=== PATIENT | male | born 1975 | race Caucasian/White ===

== ENCOUNTER 2018-03-31 19:50 | Inpatient (IN) | payer BC, OTHER ==
[~2018-03-31] VITALS: Ht 177.8 cm; Wt 61.2 kg
--- NOTE | 2018-03-31 21:50 | NUR ---
Pre-Admission Note Assessment done in the intake office. Px appears intoxicated at the moment. Px has flushed face and his breath smells alcohol. He looks anxious and depressed. He has flat affect with poor eye contact. Px is A&Ox4. Speech is clear but audibly soft. VS are as follows BP= 140/86, DC= 93, RR= 17, T= 96.6, O2sat= 96% on RA. Px is here for medically supervised withdrawal from ETOH. Px denies any hx of withdrawal-induced seizures. He has NKA. Px brought home medications for reconciliation. Admission process will continue in the unit.
[2018-03-31] MEDS ORDERED: MIRALAX 17 GM POWD.PACK PO PRN (22:15)
[2018-03-31] MEDS ORDERED: DICYCLOMINE HCL 20 MG TABLET PO PRN (22:15)
[2018-03-31] MEDS ORDERED: CLONIDINE HCL 0.1 MG TABLET PO PRN (22:15)
[2018-03-31] MEDS ORDERED: LORAZEPAM 2 MG/1 ML VIAL IM PRN (22:15)
[2018-03-31] MEDS ORDERED: HYDROXYZINE PAMOATE 25 MG CAPSULE PO PRN (22:15)
[2018-03-31] MEDS ORDERED: ONDANSETRON 4 MG/2 ML VIAL IM PRN (22:15)
[2018-03-31] MEDS ORDERED: LORAZEPAM 1 MG TABLET PO PRN (22:15)
[2018-03-31] MEDS ORDERED: LOPERAMIDE HCL 2 MG CAPSULE PO PRN ×2 (22:15)
[2018-03-31] MEDS ORDERED: ONDANSETRON ODT 4 MG TAB.RAPDIS SL PRN (22:15)
[2018-03-31] MEDS ORDERED: IBUPROFEN 600 MG TABLET PO PRN (22:15)
[2018-03-31] MEDS ORDERED: ACETAMINOPHEN 325 MG TABLET PO PRN (22:15)
[2018-03-31] MEDS ORDERED: MAGNESIUM HYDROXIDE 30 ML LIQUID UDC PO PRN (22:15)
[2018-03-31] MEDS ORDERED: diphenhydrAMINE 50 MG CAPSULE PO PRN (22:15)
[2018-03-31] MEDS ORDERED: THIAMINE HCL 200 MG/2 ML VIAL IM ONE (22:15)
[2018-03-31] MEDS ORDERED: MAG HYDROX/AL HYDROX/SIMETH 30 ML LIQUID UDC PO PRN (22:15)
[2018-03-31] MEDS ORDERED: RISP1TAB27 PO (22:17)
[2018-03-31] MEDS ORDERED: MIRT15TA7 PO (22:17)
[2018-03-31] MEDS ORDERED: GABA300S PO (22:17)
[2018-03-31] MEDS ORDERED: TRAZ-214 PO (22:17)
[2018-03-31 22:26] LABS: BASOPHILS # (AUTO) 0.1 K/uL (0.0-8.0); BASOPHILS % (AUTO) 0.9 % (0.0-2.0); EOSINOPHILS % (AUTO) 0.2 % (0.0-7.0); HEMATOCRIT 42.7 % (36.7-47.1); HEMOGLOBIN 14.8 g/dL (12.5-16.3); LYMPHOCYTES # (AUTO) 1.7 K/uL (20.0-40.0); LYMPHOCYTES % (AUTO) 26.7 % (20.5-51.5); MEAN CORPUSCULAR HGB CONC 35 g/dL (32.5-36.3); MEAN CORPUSCULAR VOLUME 95.1 fL (73.0-96.2); MONOCYTES # (AUTO) 0.4 K/uL (2.0-10.0); MONOCYTES % (AUTO) 6.5 % (0.0-11.0); NEUTROPHILS # (AUTO) 4.2 K/uL (1.8-8.9); NEUTROPHILS % (AUTO) 65.7 % (38.5-71.5); PLATELET COUNT (AUTO) 364 K/uL (152-348); RED BLOOD CELL COUNT(AUTO) 4.49 MIL/uL (4.06-5.63); WHITE BLOOD COUNT (AUTO) 6.3 K/uL (3.6-10.2)
--- NOTE | 2018-03-31 22:45 | NUR ---
Admission Note Jamie is a 42 y/o male being admitted for medically supervised withdrawal from ETOH. Upon assessment, px appears intoxicated with ETOH. He has flushed face with breath smells like alcohol. He looks anxious and depressed. He has a flat affect with poor eye contact. Speech is clear and audibly soft. Jamie is A&Ox4 and cooperative. Px states that his withdrawals from ETOH include anxiety, depression, jitteriness, N/V, H/A and hand tremors. Px denies any hx of withdrawal- induced seizure. Jamie is drinking ETOH-Vodka 750 ml daily for 1 year. He started drinking 15 years ago and slowly increased his dosage and frequency. Px admitted that his peers influenced him into drinking. Last time he took ETOH was this afternoon around 2PM. He consumed 750 ml Vodka today. At first, jamie denies any difficulties in life that prompts him to drink alcohol. Jamie states that he goes shopping in supermarkets to divert himself from drinking if he has cravings. Jamie tried many times to get sober in the span of 15 years of drinking where his longest sobriety was 1 whole year from 2016 to 2017. He had also blackouts but denies experiencing falls. He states that challenges in life are the triggers for his relapsed. Jamie is guarded and refrain from elaborating about his challenges in life. Jamie states that he came here because he doesnt feel well, his anxiety is too high, he doesnt want to experience seizures and he doesnt want to early. Jamie lives with his domestic partner who supports him and was the one who assisted him in getting this tx. Jamie plans to finish this detox then go to an [facility] for 60 days because he has to work. 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 Jamie is first time in detox/tx. Jamie has PMH of anxiety and depression. Jamie has home medication of Risperidone but denies schizophrenia or bipolar d/o. VS are as follows BP= 142/85, NH= 95, RR= 19, O2sat= 97% on RA, T= 98.1. Pulse is regular. Respirations are even and unlabored. Lung martinez are clear. Bowel sounds are active on all quadrants. He stands at 510 and weighs 135 lbs on standing scale. Jamie has dried healing 1 inch cut on his right index finger. He stated that he cant recall what happened to it. Px smokes a pack of cigarettes daily. Px is educated about the plan of care including detox, group and individual therapy and D/C planning. Px was encouraged to be open and be honest for a successful recovery.
--- NOTE | 2018-03-31 22:45 | NUR ---
CIWA 12 Px appears anxious and depressed. Px stated that his anxiety is off the roof. Mild bilateral hand tremors noted. No more complaints at the moment. will continue to monitor
[2018-03-31 22:49] LABS: POTASSIUM 3.9 mmol/L (3.5-5.1)
[2018-03-31 22:50] LABS: BILIRUBIN,TOTAL 0.8 mg/dL (0.2-1.0); MAGNESIUM 1.8 mg/dL (1.8-2.4); TOTAL PROTEIN, SERUM 7.7 g/dL (6.4-8.2)
[2018-03-31 22:52] LABS: THYROID STIMULATING HORMONE 1.793 mIU/mL (0.358-3.740)
[2018-03-31] MEDS ORDERED: TRAZODONE 50 MG TABLET PO ONE (23:00)
[2018-03-31 23:16] LABS: *AMPHETAMINE, URINE NEGATIVE (NEGATIVE); *BARBITURATE, URINE NEGATIVE (NEGATIVE); *CANNABINOID, URINE NEGATIVE (NEGATIVE); *COCCAINE, URINE NEGATIVE (NEGATIVE); *OPIATE, URINE NEGATIVE (NEGATIVE); *PHENCYCLIDINE SCREEN,URINE NEGATIVE (NEGATIVE)
[2018-04-01] VITALS: BP 138/86
--- NOTE | 2018-04-01 | NUR ---
CIWA reassessment deferred CIWA deferred due to the px is asleep. will continue to monitor
[2018-04-01] MEDS ORDERED: TETR15DR97 OP (00:35)
[2018-04-01] MEDS ORDERED: BRIM30GE2 TP (00:35)
[2018-04-01] MEDS ORDERED: BRIMONIDINE (00:35)
[2018-04-01] MEDS ORDERED: CARB15DR97 OP (00:35)
[2018-04-01] MEDS ORDERED: OXYM15MI4 NS (00:35)
[2018-04-01] MEDS: LORAZEPAM 1 MG TABLET PO PRN ×4 (02:50→12:12)
--- NOTE | 2018-04-01 02:50 | NUR ---
PRN Ativan and Benadryl Px woke up and ask for pills for anxiety and insomnia. Px stated that his anxiety is 10/10. Mild bilateral hand tremors and mild H/A are prevalent. He received Ativan 2 mg PO for CIWA 16 and Benadryl 50 mg PO for insomnia. will continue to monitor.
[2018-04-01 04:00] VITALS: BP 102/76
--- NOTE | 2018-04-01 04:00 | NUR ---
CIWA deferred CIWA deferred due to the px is asleep, to assess if the px is awake per doctor's order. Will continue to monitor.
--- NOTE | 2018-04-01 05:41 | NUR ---
CIWA 16 Px woke up and ask again for pills for anxiety. Px stated that his anxiety is still 10/10. Mild bilateral hand tremors and mild H/A are prevalent. He received Ativan 2 mg PO for CIWA 16. will continue to monitor.
--- NOTE | 2018-04-01 07:05 | NUR ---
End of Shift Notes During the shift at 2257, px received Clonidine 0.1 mg PO and Ativan 1 mg PO for CIWA of 12. At 0250, px received Ativan 2mg and Benadryl 50 mg PO for CIWA 16 and insomnia. Px slept after and then woke up again at 0535. At 0541, px received Ativan 2 mg PO for CIWA 16. Px fell asleep again. Px slept for total of 6 hours. Oral intake of 800 ml, voided 3x, No BM. Last CIWA 16. At 0630, px is asleep on bed in left side lying position. Bed on the lowest position, side rails up 2x and call light within reach. Well continue to monitor. Px endorsed to AM shift nurse.
--- NOTE | 2018-04-01 07:10 | NUR ---
Start Of Shift Report received from shift leader nurse. Pt is a 42 y/o male being admitted for withdrawal from ETOH. Per shift leader his last CIWA was 16. Upon start of shift pt noted pacing around the unit,. When greeted pt stated "I need Ativan, when am I getting it , I feel anxious is it time yet to get my medication. Pt's room appears unorganized and messy, clothes laying around everywhere, on his bed, on the floor on his table, there are food/snack wraps on the floor ad empty bottles on the table. Pt appears anxious, flushed, tremors and fatigued. During assessment, pt is AOx4. Lung sounds clear bilaterally. Radial pulse is regular and non-bounding. Abdomen soft and non-tender. Pt's skin is warm and intact. Pt denies any pain at the moment. Encouraged pt to drink plenty of fluids to keep hydrated and help the detox process. Pt received PRN Ativan 1mg, Ativan 2mg, Clonidine 0.1mg, Ativan 2mg and Benadryl 50mg, medication were effective per shift leader nurse. Bed in lowest position. Side rails up x2. Call light functioning and within reach. All needs attended and met. Will continue to monitor.
[2018-04-01 08:00] VITALS: BP 116/80
--- NOTE | 2018-04-01 08:00 | NUR ---
CIWA 17 Pt has diaphoresis, anxiety restless legs, yawning agitation, Emotional volatility and restlessness. Pt complains of chills runny nose and fatigue. Pt encouraged to drink more fluids to help with detox process. Will continue to monitor, support and encourage according to plan of care.
[2018-04-01] MEDS ORDERED: TUBERCULIN,PURIF.PROT.DERIV. 5 TU/0.1 ML TEST ID ONE (09:00)
[2018-04-01] MEDS: THIAMINE HCL 100 MG TABLET PO SCH (09:33)
[2018-04-01] MEDS: MULTIVITAMINS,THERAPEUTIC TABLET PO SCH (09:33)
[2018-04-01] MEDS: FOLIC ACID 1 MG TABLET PO SCH (09:33)
--- NOTE | 2018-04-01 09:33 | NUR ---
PRN administration CIWA 17 Pt has fine tremors, diaphoresis, anxiety and restlessness. Pt complains of chills and body aches.Pt encouraged to drink more fluids to help with detox process. PRN Ativan 2mg PO administered as ordered, will continue to monitor
--- NOTE | 2018-04-01 10:12 | NUR ---
Therapist prompted client to attend group therapy.
--- NOTE | 2018-04-01 10:33 | NUR ---
PRN Reassessment Medication partially effective pt continues to experience anxiety chills and agitation, pt noted pacing around his room, will continue to monitor pt
[2018-04-01 12:00] VITALS: BP 120/82
--- NOTE | 2018-04-01 12:00 | NUR ---
CIWA 18 Pt has diaphoresis, anxiety restless legs, yawning agitation, Emotional volatility and restlessness. Pt complains of chills runny nose and fatigue. Pt encouraged to drink more fluids to help with detox process. Will continue to monitor, support and encourage according to plan of care.
--- NOTE | 2018-04-01 12:12 | NUR ---
PRN ADMINISTRATION Pt has fine tremors, diaphoresis, anxiety and restlessness. continues to be agitated and pacing around the unit with the CIWA score up to 18 upon assessment, educated pt about relaxation techniques and breathing techniques with no success, PRN Ativan 2mg PO administered. will continue to monitor pt.
[2018-04-01] MEDS ORDERED: 3 DAY TAPER BUPRENORPHINE -SERENITY PROTOCOL SL PRN (12:45)
[2018-04-01] MEDS ORDERED: 3 DAY TAPER OF LORAZEPAM -SERENITY PROTOCOL PO PRN (12:45)
--- NOTE | 2018-04-01 13:12 | NUR ---
PRN REASSESSMENT Medication effective pt states that anxiety has decreased and that he is feeling much better, all needs met will continue to monitor pt was noticed laying in bed resting with eyes closed
[2018-04-01] MEDS: LORAZEPAM 1 MG TABLET PO SCH ×2 (14:28→20:05)
[2018-04-01 16:00] VITALS: BP 122/81
--- NOTE | 2018-04-01 16:00 | NUR ---
CIWA 12 Pt has anxiety restless legs,agitation, Emotional volatility and restlessness. Pt complains of chills and fatigue. Pt encouraged to drink more fluids to help with detox process. Will continue to monitor, support and encourage according to plan of care.
--- NOTE | 2018-04-01 18:57 | NUR ---
End of Shift Report given to shift mechanic nurse, Plan of care followed, Vital signs monitored closely Q4H. Withdrawals symptoms were closely monitored, medications given as schedule. Initial CIWA 17. Pt encouraged adequate PO fluid intake as tolerated. Pt presented with sweats flushed face emotional volatility restless legs, anxiety and tremors during the day. Pt received all of his scheduled taper medications. Pt received PRN Ativan 2mg X2 due to withdrawal symptoms which was effective. Last CIWA was a 12. Pt reported that the Ativan has been working well at controlling his withdrawal symptoms. Pt ate all of his meals. Pt attended all the groups and activities to learn new coping skills to prevent relapse. Pt denies any SI/HI. All safety measures in place, bed in lowest locked position, call light within reach. All needs met and attended.
--- NOTE | 2018-04-01 19:30 | NUR ---
Start of Shift Note Received a 42 y/o male px, admitted for medically supervised withdrawal from ETOH. Px was placed on 3 day Ativan taper started today, 04/01/2018. Px is tolerating it. Last CIWA reported by AM shift nurse is 12. During the rounds at 1930, px is awake inside his room, standing. Px appears anxious and depressed. He has flat affect and poor eye contact. Some unfinished drinks noted on top of the bed side table. Px stated that his anxiety is 10/10. Bilateral hand tremors noted. No more complaints made. He requested to receive his night meds at 1999. Bed on the lowest position, side rails up 2x and call light within reach. Well continue to monitor.
[2018-04-01 20:00] VITALS: BP 122/81
--- NOTE | 2018-04-01 20:00 | NUR ---
CIWA 12 On assessment, Px stated that his anxiety is 10/10. Mild bilateral hand tremors. will continue to monitor.
[2018-04-01] MEDS: risperiDONE 1 MG TABLET PO SCH (20:05)
[2018-04-01] MEDS: MIRTAZAPINE 15 MG TABLET PO SCH (20:05)
[2018-04-01] MEDS: TRAZODONE 100 MG TABLET PO SCH (20:05)
[2018-04-01] MEDS ORDERED: GABA300S PO (20:09)
[2018-04-01] MEDS ORDERED: GABA-534 PO (20:11)
[2018-04-02] VITALS: BP 118/77
--- NOTE | 2018-04-02 | NUR ---
CIWA deferred CIWA deferred due to the px is asleep, to assess if the px is awake per doctor's order. Will continue to monitor.
[2018-04-02 04:00] VITALS: BP 112/81
--- NOTE | 2018-04-02 04:00 | NUR ---
CIWA deferred CIWA deferred due to the px is asleep, to assess if the px is awake per doctor's order. Will continue to monitor.
--- NOTE | 2018-04-02 07:05 | NUR ---
End of Shift Note During the shift, px slept most of the time. No PRN medication given. Oral intake of 700 ml, voided 1x, No BM. Last CIWA 12. Px slept for 9.5 hours. At 0630, px is asleep on bed in right side lying position. Bed on the lowest position, side rails up 2x and call light within reach. Well continue to monitor. Px endorsed to AM shift nurse.
--- NOTE | 2018-04-02 07:30 | NUR ---
START OF SHIFT Pt 42 y/o male admitted for etoh withdrawal. Pt received in room on bed with eyes closed resting, but easily around to meals. Pt alert and oriented to name, place, and time. Perrla. Skin warm and moist to touch. Respirations even and unlabored. Appears disheveled. Hair uncombed. Empty drink bottles scattered throughout the room. Encouraged to maintain hygiene. Pressured speech. Bilateral hand tremors noted. Anxious and restless. Fidgety. Easily irritable. It was reported that pt slept for 10 hours last night. Pt is on a 3 day ativan taper and is on day 2. Last ciwa=12 @ 0000. Bed on lowest position with side rails x2 up for safety. Call light within reach.
[2018-04-02 08:00] VITALS: BP 117/71
--- NOTE | 2018-04-02 08:00 | NUR ---
CIWA ASSESSMENT ciwa=13. Bilateral hand tremors. Anxious and restless. Pressured speech. Easily irritable. Face flushed. Skin warm and moist to touch. Generalized discomfort.
[2018-04-02 08:06] LABS: HEPATITIS B SURFACE AG Negative (Negative)
--- NOTE | 2018-04-02 10:21 | NUR ---
NSG ENTRY Nursing education on risk on leaving before completing medical treatment. Pt acknowledged.
--- NOTE | 2018-04-02 10:21 | NUR ---
Social Work Note: associate music professor requested evaluation of this patient who was wanting to sign out against medical advice. Pt. is alert and oriented x3 and thought content is organized. He rationalized that "this was a slip". His plan is to continue with his therapist and [facility] where he attends 3 hour intensive outpatient several evenings a week. He acknowledges he began drinking even while attending [facility]. Pt. does not appear motivated to continue with [facility]. He "thinks his partner will support his leaving". Mood appears euthymic and patient does not present with any wish to harm himself or others. He does not meet any criteria for a 5150. He has a clear plan and is able to formulate a plan for his care even if he is not going to remain sober. He says he will " go back to work but not today". He has not participated in group therapy at time of writing and is not open to exploring feelings or triggers at time of assessment. There is no evidence of confusion or any psychotic process. His behavior was appropriate throughout the meeting.
[2018-04-02] MEDS: LORAZEPAM 1 MG TABLET PO SCH ×2 (10:33→14:43)
[2018-04-02] MEDS: MULTIVITAMINS,THERAPEUTIC TABLET PO SCH (10:33)
[2018-04-02] MEDS: THIAMINE HCL 100 MG TABLET PO SCH (10:33)
[2018-04-02] MEDS: FOLIC ACID 1 MG TABLET PO SCH (10:33)
[2018-04-02 12:00] VITALS: BP 123/91
--- NOTE | 2018-04-02 12:00 | NUR ---
CIWA ASSESSMENT ciwa=13. Anxious and restless. Pacing hallways. Easily irritable. Bilateral hand tremors noted. Generalized discomfort.
[2018-04-02 16:00] VITALS: BP 121/80
--- NOTE | 2018-04-02 16:00 | NUR ---
CIWA ASSESSMENT ciwa=13. Anxious and restless. Bilateral hand tremors noted. Pressured speech noted. Easily irritable/ agitated. Intermittent perspiration.
--- NOTE | 2018-04-02 19:00 | NUR ---
END OF SHIFT Pt 42 y/o male admitted for etoh withdrawal. Alert and oriented to name, place, and time. Perrla. Skin warm and moist to touch. Respirations even and unlabored. Appears disheveled and unkempt. Clothes scattered throughout the room. Encouraged to maintain hygiene. Anxious and restless. Observed pacing the unit hallways throughout the morning. Pressured speech. Easily irritable and agitated. Bilateral hand tremors noted. Isolative with minimal peer interaction throughout the day. Attended group activity. Medication complaint. Pt was seen by today. Last ciwa=13 @1600. Pt is on a 3 day ativan taper and is on day 2. Bed on lowest position with side rails x2 up for safety. Call light within reach.
[2018-04-02 20:00] VITALS: BP 123/80
--- NOTE | 2018-04-02 20:00 | NUR ---
START OF SHIFT Pt is a 42 y/o male admitted on 03/31/18 for ETOH withdrawal. Pt is on a 3 day Ativan taper that started on 04/01/18, tolerating well. Last CIWA 13 and no PRNs administered during day shift. Upon assessment pt presents with anxiety, agitation, irritability, restlessness, inability to sit still and difficulty falling asleep. Pt is requesting for early d/c for tomorrow. Medications due. Safety measures in place. Call light within reach. Will continue to monitor.
--- NOTE | 2018-04-02 20:00 | NUR ---
CIWA 9 Pt presents with anxiety, agitation, irritability, restlessness, inability to sit still and difficulty falling asleep. Pt pacing around hallways, requesting medications.
[2018-04-02] MEDS: MIRTAZAPINE 15 MG TABLET PO SCH (20:51)
[2018-04-02] MEDS: TRAZODONE 100 MG TABLET PO SCH (20:51)
[2018-04-02] MEDS: risperiDONE 1 MG TABLET PO SCH (20:51)
--- NOTE | 2018-04-02 20:54 | NUR ---
PRN VISTARIL ADMINISTRATION Pt presents with anxiety. Ativan taper tonight cancelled d/t approval on early d/c tomorrow afternoon. Safety measures in place. Call light within reach. Will continue to monitor.
[2018-04-02] MEDS: GABAPENTIN 300 MG CAPSULE PO SCH (21:27)
--- NOTE | 2018-04-02 21:54 | NUR ---
PRN VISTARIL REASSESSMENT Pt reports improvement in anxiety, appears more calm. Safety measures in place. Call light within reach. Will continue to monitor.
--- NOTE | 2018-04-03 | NUR ---
CIWA DEFERRED AND VITALS REFUSED Pt laying in bed with eyes closed, CIWA deferred, to be assessed when pt is awake per orders. Vitals refused. Respirations even and unlabored. Safety measures in place. Call light within reach. Will continue to monitor.
--- NOTE | 2018-04-03 07:08 | NUR ---
END OF SHIFT Pt is a 42 y/o male admitted on 03/31/18 for ETOH withdrawal. Pt was initially placed on a 3 day Ativan taper, but is now being d/c today in the afternoon. Scheduled Ativan at 2100 cancelled per MD order. Pt presented with anxiety, agitation, irritability, restlessness, inability to sit still and difficulty falling asleep. Scheduled medications and PRN Vistaril administered, effective in S/S of withdrawal as verbalized by pt. Last CIWA 9. Pt slept 9 hours. Intake 2094 ml, void x 2, stool x 1. Safety measures in place. Call light within reach. Pts needs have been met. Endorsed to day shift nurse.
--- NOTE | 2018-04-03 07:30 | NUR ---
START OF SHIFT Pt 42 y/o male admitted for etoh withdrawal. Pt received in room on bed with eyes closed resting, but easily arousable to name. Pt alert and oriented to name, place, and time. Perrla. Skin warm and moist to touch. Respirations even and unlabored. Appears disheveled and unkempt. Clothes and empty drink bottles scattered throughout the room. Encouraged to maintain hygiene. Anxious and restless this morning. Bilateral hand tremors noted. Pressured speech noted. It was reported that pt slept for 9 hours last night. Last ciwa=9 @1999. Pt completed a modified ativan taper. Bed on lowest position with side rails x2 up for safety. Call light within reach.
[2018-04-03 08:00] VITALS: BP 116/78
--- NOTE | 2018-04-03 08:00 | NUR ---
CIWA ASSESSMENT ciwa=6. Anxious and restless. Observed pacing hallways. Slight bilateral hand tremors noted. Irritable. Pressured speech.
[2018-04-03] MEDS ORDERED: LORAZEPAM 1 MG TABLET PO SCH (09:00)
[2018-04-03] MEDS: MULTIVITAMINS,THERAPEUTIC TABLET PO SCH (09:00)
[2018-04-03] MEDS: GABAPENTIN 300 MG CAPSULE PO SCH (09:06)
[2018-04-03] MEDS: FOLIC ACID 1 MG TABLET PO SCH (09:06)
[2018-04-03] MEDS: THIAMINE HCL 100 MG TABLET PO SCH (09:06)
[2018-04-03 12:00] VITALS: BP 120/80
--- NOTE | 2018-04-03 12:00 | NUR ---
CIWA ASSESSMENT ciwa=6. Anxious and restless. Observed walking around the unit hallways.
[2018-04-03] MEDS ORDERED: HYDR-3895 PO (14:07)
--- NOTE | 2018-04-03 15:55 | NUR ---
DISCHARGE Pt 42 y/o male admitted for etoh withdrawal. Pt alert and oriented to name, place, and time. Perrla. Respirations even and unlabored. Pt denies any SI/ HI. VS wnl. No belongings in cabinet noted. Belongings in cassette, home medications, prescriptions, and discharge papers packed in pt bag. Pt discharged home per private transport. No distress noted.
[2018-04-03] MEDS ORDERED: GABAPENTIN 300 MG CAPSULE PO SCH (21:00)
== END 2018-04-03 15:55 | disposition home or self-care (01) | DRG 895 ==
LOC: SRC 21:23
PROVIDERS: ADMIT Family Medicine Addiction Medicine; ATTEND Family Medicine Addiction Medicine
DX: F10.230 Alcohol dependence with withdrawal, uncomplicated (principal); Y90.6 Blood alcohol level of 120-199 mg/100 ml; F32.9 Major depressive disorder, single episode, unspecified; F41.9 Anxiety disorder, unspecified; F17.210 Nicotine dependence, cigarettes, uncomplicated
CPT/HCPCS: 36415; 70030-TC; 80307; 83690; 83735; 84443; 85025; 86592; 86705; 86803; 87340; 87806; A4663; G0480; J3411; Q0163